=== PATIENT | female | born 1975 | race Two or more races ===

== ENCOUNTER 2019-04-19 19:28 | Inpatient (IN) | payer OTHER ==
--- NOTE | 2019-04-20 01:41 | HP ---
CIWA Score Nausea/Vomitin Muscle Tremors: 4-Moderate,w/Arms Extend Anxiety: 4-Mod. Anxious/Guarded Agitation: 4-Moderately Restless Paroxysmal Sweats: 1-Minimal Palms Moist Orientation: 3-Disoriented Date>2 days Tacttile Disturbances: 2-Mild Itch/Numbness/Burn Auditory Disturbances: 0-None Visual Disturbances: 0-None Headache: 3-Moderate CIWA-Ar Total Score: 24 - Admission Criteria OASAS Guidelines: Admission for Medically Managed Detox: Requires at least one of the followin. CIWA greater than 12 2. Seizures within the past 24 hours 3. Delirium tremens within the past 24 hours 4. Hallucinations within the past 24 hours 5. Acute intervention needed for co occurring medical disorder 6. Acute intervention needed for co occurring psychiatric disorder 7. Severe withdrawal that cannot be handled at a lower level of care (continued vomiting, continued diarrhea, abnormal vital signs) requiring intravenous medication and/or fluids 8. Patient presents the following: CIWA greater than 12 Admission Criteria Met: Admission criteria met Admission ROS [facility] - [facility] Chief Complaint: i WANT TO DETOX Allergies/Adverse Reactions: Allergies Allergy/AdvReac Type Severity Reaction Status Date / Time No Known Allergies Allergy Verified 04/19/19 23:07 History of Present Illness: 43 Y.O. MALE WITH ALCOHOLISM AND OPIOID DEPENDENCE HERE FOR DETOX. CLIENT IS REFERRED BY [facility] AFTER PRESENTING THERE FOR DETOX. SHE PRESENTS WITH C/O WITHDRAWAL SX'S. CIWA 24. 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 LDM 100 MG 04/19/2019 PENDING VERIFICATION. SHE IS KNOWN TO [facility]. LAST HERE 4 YEARS AGO IN REHAB. DENIES ANY INPATIENT TXMENT SINCE. 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 DENIES ANY CLEAN TIME IN THE PAST 1 YEAR. REPORTS +HX/O BLACK OUTS BUT DENIES SIEZURE D/O, SI/HI/AVH. LIVES WITH A FRIEND, UNEMPLOYED, DENIES LEGALS Exam Limitations: No Limitations - Ebola screening Have you traveled outside of the country in the last 21 days: No (N) Have you had contact with anyone from an Ebola affected area: No Do you have a fever: No - Review of Systems Constitutional: Chills, Loss of Appetite, Changes in sleep EENT: reports: Dental Problems (MISSING TEETH) Respiratory: reports: Shortness of Breath, Wheezing Cardiac: reports: Edema GI: reports: Constipated (LAST BM 2 SAYS AGO), Nausea, Poor Appetite, Poor Fluid Intake : reports: No Symptoms Reported Musculoskeletal: reports: Back Pain (CHRONIC) Integumentary: reports: No Symptoms Reported Neuro: reports: Headache, Numbness (TOES) Endocrine: reports: No Symptoms Reported Hematology: reports: No Symptoms Reported Psychiatric: reports: Orientated x3, Agitated (IRRITABLE), Anxious, Depressed Other Systems: Reviewed and Negative Patient History - Patient Medical History Hx Anemia: No Hx Asthma: Yes (BRONCHITIS) Hx Chronic Obstructive Pulmonary Disease (COPD): No Hx Cancer: No Hx Cardiac Disorders: No Hx Congestive Heart Failure: No Hx Hypertension: No Hx Hypercholesterolemia: No Hx Pacemaker: No HX Cerebrovascular Accident: No Hx Seizures: No Hx Dementia: No Hx Diabetes: No Hx Gastrointestinal Disorders: No Hx Liver Disease: No Hx Genitourinary Disorders: No Hx Sexually Transmitted Disorders: No Hx Renal Disease (ESRD): No Hx Thyroid Disease: No Hx Human Immunodeficiency Virus (HIV): No Hx Hepatitis C: No Hx Depression: Yes Hx Suicide Attempt: No Hx Bipolar Disorder: Yes Hx Schizophrenia: No Other Medical History: ANXIETY, BIPOLAR - Patient Surgical History Past Surgical History: Yes Hx Section: Yes (x 3 ) Hx Orthopedic Surgery: Yes (LEFT KNEE) Anesthesia Reaction: No - PPD History Previous Implant?: Yes Documented Results: Negative w/proof Implanted On Prior R Admission?: Yes Date: 04/19/15 Results: 0MM PPD to be Administered?: Yes - Reproductive History Patient is a Female of Child Bearing Age (11 -55 yrs old): Yes Last Menstrual Period: 03/28/19 LMP comment: IRREG [facility] - Smoking Cessation Smoking history: Current every day smoker Have you smoked in the past 12 months: Yes Aproximately how many cigarettes per day: 4 Cigars Per Day: 0 Hx Chewing Tobacco Use: No Initiated information on smoking cessation: Yes 'Breaking Loose' booklet given: 04/20/19 - Substance & Tx. History Hx Alcohol Use: Yes Hx Substance Use: Yes Substance Use Type: Alcohol, Cocaine, Heroin, Prescribed (METHADONE) - Substances abused Alcohol Other (specify): LIQUOR/BEER Substance route: Oral Frequency: Daily Amount used: 2 40oz beers/ 1PINT VODKA Age of first use: 14 Date of last use: 04/18/19 Heroin Substance route: Inhalation Frequency: Daily Amount used: 3 bags/day Age of first use: 35 Date of last use: 04/18/19 Cocaine Substance route: Inhalation Frequency: Daily Amount used: $60 Age of first use: 17 Date of last use: 04/18/19 Family Disease History - Family Disease History Family Disease History: Diabetes: Mother (hyperlipidemia ), Heart Disease: Mother, Other: Mother Admission Physical Exam [facility] - Vital Signs Vital Signs: Vital Signs - 24 hr 04/19/19 04/19/19 04/20/19 23:18 23:54 01:30 Temperature 98.3 F 98.3 F 98.1 F Pulse Rate 65 65 65 Respiratory 18 18 18 Rate Blood Pressure 131/95 131/95 131/95 - Physical General Appearance: Yes: Moderate Distress, Tremorous, Irritable, Anxious HEENTM: Yes: EOMI, Normocephalic, Normal Voice, VERONICA, Pharynx Normal, Nasal Congestion, Other (MISSING TEETH) Respiratory: Yes: Chest Non-Tender, Lungs Clear, Normal Breath Sounds, No Respiratory Distress, No Accessory Muscle Use Neck: Yes: No masses,lesions,Nodules, Supple, Trachea in good position Breast: Yes: Breast Exam Deferred Cardiology: Yes: Regular Rhythm, Regular Rate, S1, S2 Abdominal: Yes: Non Tender, Soft, Increased Bowel Sounds, Protuberent Genitourinary: Yes: Within Normal Limits Back: Yes: Normal Inspection Musculoskeletal: Yes: full range of Motion, Gait Steady, Back pain (C/O W/ ROM) Extremities: Yes: Normal Capillary Refill, Normal Range of Motion, Non-Tender, Tremors (FELT) Neurological: Yes: Alert, Motor Strength 5/5, Depressed Affect Integumentary: Yes: Dry, Warm Lymphatic: Yes: Within Normal Limits - Diagnostic (1) Alcohol dependence with uncomplicated withdrawal Current Visit: Yes Status: Acute (2) Cocaine dependence, uncomplicated Current Visit: Yes Status: Acute (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 (4) Chronic low back pain Current Visit: Yes Status: Chronic Qualifiers: Back pain laterality: unspecified (5) Neuropathy Current Visit: Yes Status: Chronic (6) Nicotine dependence Current Visit: Yes Status: Chronic Qualifiers: Nicotine product type: cigarettes Substance use status: uncomplicated Qualified Code(s): F17.210 - Nicotine dependence, cigarettes, uncomplicated (7) Substance induced mood disorder Current Visit: Yes Status: Suspected Cleared for Admission S - Detox or Rehab [facility] Level of Care: Medically Managed Detox Regimen/Protocol: Librium Claeared for Rehab Admission: No Breathalyzer - Breathalyzer Breathalyzer: 0 Urine Drug Screen - Test Device Lot number: [id number] Expiration date: 01/14/21 - Control Is test valid?: Yes - Results Drug screen NEGATIVE: Yes Urine drug screen results: KALIE-Cocaine, FEN-Fentanyl, MOP-Opiates, OXY-Oxycodone , MTD-Methadone Inpatient Rehab Admission - Rehab Decision to Admit Inpatient rehab admission?: No
[2019-04-20] MEDS ORDERED: MENTHOL/PHENOL 1 EACH UD MM PRN (01:50)
[2019-04-20] MEDS ORDERED: hydrOXYzine PAMOATE 25 MG CAPSULE (FP) PO PRN (01:50)
[2019-04-20] MEDS ORDERED: MAG HYDROX/AL HYDROX/SIMETH 30 ML UNIT-DOSE CUP PO PRN (01:50)
[2019-04-20] MEDS ORDERED: METHOCARBAMOL 500 MG TABLET PO PRN (01:50)
[2019-04-20] MEDS ORDERED: DICYCLOMINE HCL 10 MG CAPSULE PO PRN (01:50)
[2019-04-20] MEDS ORDERED: MAGNESIUM HYDROX 2400MG/30ML ORAL SUSPENSION 30 ML CUP PO PRN (01:50)
[2019-04-20] MEDS ORDERED: ACETAMINOPHEN 325 MG TABLET (FP) PO PRN ×2 (01:50)
[2019-04-20] MEDS ORDERED: MAGNESIUM CITRATE 300 ML BOTTLE PO PRN (01:50)
[2019-04-20] MEDS ORDERED: P-EPHED 60MG/TRIPROLIDI 2.5MG TABLET PO PRN (01:50)
[2019-04-20] MEDS ORDERED: BISMUTH SUBSALICYLATE 524 MG/30 ML UD PO PRN (01:50)
[2019-04-20] MEDS ORDERED: ONDANSETRON *ODT* 4 MG TABLET SL PRN (01:50)
[2019-04-20] MEDS ORDERED: guaiFENesin 200 MG/10 ML 10 ML UNIT-DOSE CUPS PO PRN (01:50)
[2019-04-20] MEDS: chlordiazePOXIDE HCL 25 MG CAPSULE PO PRN (02:36)
[2019-04-20] MEDS: chlordiazePOXIDE HCL 25 MG CAPSULE PO SCH ×4 (05:38→22:08)
[2019-04-20] MEDS ORDERED: METHADONE HCL 10 MG TABLET PO SCH (08:00)
--- NOTE | 2019-04-20 08:02 | EKG ---
Test Reason : Blood Pressure : / mmHG Vent. Rate : 064 BPM Atrial Rate : 064 BPM P-R Int : 152 ms QRS Dur : 074 ms QT Int : 432 ms P-R-T Axes : 044 060 054 degrees QTc Int : 445 ms NORMAL SINUS RHYTHM NORMAL ECG NO PREVIOUS ECGS AVAILABLE Confirmed by ANJEL WYNN, RALPH ([id number]) on 04/20/2019 8:02:31 AM Referred By: Edgar Patel Confirmed By:RALPH HOBBS MD
[2019-04-20] MEDS ORDERED: METHADONE HCL 40 MG DISPERSABLE TABLET ONE (08:58)
[2019-04-20] MEDS ORDERED: METHADONE HCL 10 MG TABLET ONE (08:58)
[2019-04-20] MEDS: METHADONE 80 MG, METHADONE 20 MG PO SCH (10:39)
[2019-04-20] MEDS: PRENATAL VITAMINS W/ FOLIC ACID TABLET (FP) PO SCH (10:40)
[2019-04-20] MEDS: GABAPENTIN 300 MG CAPSULE (FP) PO SCH ×2 (10:40→22:08)
[2019-04-20] MEDS: NICOTINE 14 MG/24 HOURS TOPICAL PATCH TD SCH (10:40)
[2019-04-20] MEDS: NICOTINE POLACRILEX 2 MG GUM BUC PRN (10:41)
--- NOTE | 2019-04-20 11:49 | PN ---
S CIWA - CIWA Score Nausea/Vomitin Muscle Tremors: 2 Anxiety: 3 Agitation: 3 Paroxysmal Sweats: 1-Minimal Palms Moist Orientation: 0-Oriented Tacttile Disturbances: 1-Very Mild Itch/Numbness Auditory Disturbances: 0-None Visual Disturbances: 0-None Headache: 2-Mild CIWA-Ar Total Score: 14 BHS Progress Note (SOAP) Subjective: alert,irritable,anxious,interrupted sleep,tremor,pain in the body Objective: 04/20/19 11:48 Vital Signs Temperature 98.6 F 04/20/19 09:13 Pulse Rate 81 04/20/19 09:13 Respiratory Rate 18 04/20/19 09:13 Blood Pressure 120/81 04/20/19 09:13 O2 Sat by Pulse Oximetry (%) 04/20/19 11:48 labs pending Assessment: 04/20/19 11:48 withdrawal symptom Plan: continue detox ,librium regimen
--- NOTE | 2019-04-20 12:34 | CONSULT ---
[facility] Psychiatric Consult - Data Date of interview: 04/20/19 Admission source: [facility] Identifying data: Readmission to [facility] for this 43 y/o female self- referred for detoxification (heroin, alcohol, cocaine). Examined at [address] [place] [phone]. Patient is , a mother of three, homeles, unemployed and supported on Public Assistance. Substance Abuse History: Confirmed by patient in this session. Details in current [facility] report as follows : Smoking history: Current every day smoker. Have you smoked in the past 12 months: Yes. Aproximately how many cigarettes per day: 4. Cigars Per Day: 0. Hx Chewing Tobacco Use: No. Initiated information on smoking cessation: Yes. 'Breaking Loose' booklet given: . - Substance & Tx. History. Hx Alcohol Use: Yes. Hx Substance Use: Yes. Substance Use Type: Alcohol, Cocaine, Heroin, Prescribed (METHADONE). - Substances abused. Alcohol. Other (specify): LIQUOR/BEER. Substance route : Oral. Frequency: Daily. Amount used: 2 40oz beers/ 1PINT VODKA. Age of first use: 14. Date of last use: 04/18/19. Heroin. Substance route: Inhalation. Frequency: Daily. Amount used: 3 bags/day. Age of first use: 35. Date of last use: 04/18/19. Cocaine. Substance route: Inhalation. Frequency: Daily. Amount used: $60. Age of first use: 17. Date of last use: 04/18/19 Medical History: Medical profile is remarkanble for bronchitis, arthroscopy ( left knee) and a history of three sections. Psychiatric History: Extensive history of mental illness (onset of emotional/ behavioral issues : age 11). Got diagnosed with ADHD and treated with psychostimulants. First psychiatric hospitalization occurred at [facility] (age 18) for depression + suicide attempt via self-mutilation (wrist- cutting). Discharged 4-5 months ago from [facility]. Diagnosis was revised to Bipolar Disorder. Patient is currently managed with trazodone 50 mg/hs + zoloft 100 mg/day. She is also on methadone maintenance (100 mg/day) at the [facility]. Ms Ruby presents with a history of chronic non-adherence to medications. Physical/Sexual Abuse/Trauma History: Not discussed. Patient declines to revisit this domain. Additional Comment: Urine drug screen results: KALIE-Cocaine, FEN-Fentanyl, MOP- Opiates, OXY-Oxycodone, MTD-Methadone. Noted. Mental Status Exam - Mental Status Exam Alert and Oriented to: Time, Place, Person Cognitive Function: Good Patient Appearance: Well Groomed (obese) Mood: Sad, Nervous, Withdrawn Affect: Mood Congruent, Constricted Patient Behavior: Fatigued, Appropriate, Cooperative Speech Pattern: Clear, Appropriate Voice Loudness: Normal Thought Process: Goal Oriented Thought Disorder: Not Present Hallucinations: Denies Suicidal Ideation: Denies Homicidal Ideation: Denies Insight/Judgement: Poor Sleep: Poorly, Difficulty falling asleep Appetite: Good Gait/Station: Normal Psychiatric Findings - Problem List (Bertrand 1, 2,3) (1) Alcohol dependence with uncomplicated withdrawal Current Visit: Yes Status: Acute (2) Heroin dependence Current Visit: Yes Status: Chronic (3) Cocaine dependence, uncomplicated Current Visit: Yes Status: Chronic (4) Nicotine dependence Current Visit: Yes Status: Chronic Qualifiers: Nicotine product type: cigarettes Substance use status: uncomplicated Qualified Code(s): F17.210 - Nicotine dependence, cigarettes, uncomplicated (5) Substance induced mood disorder Current Visit: Yes Status: Chronic (6) History of bipolar disorder Current Visit: Yes Status: Chronic (7) Insomnia Current Visit: Yes Status: Chronic - Initial Treatment Plan Initial Treatment Plan: Psychoeducation. Sleep hygiene. Detoxification. Support. AA/NA meetings. Resumed : trazodone 50 mg po hs + zoloft 100 mg po daily. Side effects/benefits are discussed with the patient. Ms Ruby agrees to this plan of care. Gave verbal consent to MD. Crouch.
[2019-04-20 15:05] LABS: EPI CELLS 28.3 /HPF (0-5/HPF); HYALINE CASTS 16 /lpf (0-8); PH,URINE 6.5 (5.0-8.0); URINE APPEARANCE TURBID; URINE BACTERIA 1.2 /hpf (NEGATIVE); URINE BILIRUBIN NEGATIVE (NEGATIVE); URINE COLOR YELLOW; URINE GLUCOSE (UA) NEGATIVE (NEGATIVE); URINE KETONE NEGATIVE (NEGATIVE); URINE LEUK ESTERASE TRACE (NEGATIVE); URINE NITRITE NEGATIVE (NEGATIVE); URINE PROTEIN TRACE (NEGATIVE); URINE RBC 2 /hpf (0-4); URINE WBC 7 /hpf (0-5)
[2019-04-20] MEDS ORDERED: ALBUTEROL SO4 2.5/IPRATROPIUM 0.5 INH SOL 3 ML VIAL.NEB. NEB PRN (16:29)
[2019-04-20] MEDS ORDERED: ALBUTEROL SO4 8 GM HFA INHALER IH PRN (16:29)
[2019-04-20] MEDS: THIAMINE HCL 100 MG TABLET (FP) PO SCH (22:08)
[2019-04-20] MEDS: traZODone HCL 50 MG TABLET (FP) PO SCH (22:08)
[2019-04-21] MEDS ORDERED: METHADONE HCL 10 MG TABLET ONE (04:03)
[2019-04-21] MEDS ORDERED: METHADONE HCL 40 MG DISPERSABLE TABLET ONE (04:03)
[2019-04-21] MEDS: chlordiazePOXIDE HCL 25 MG CAPSULE PO PRN (05:51)
[2019-04-21] MEDS: METHADONE 80 MG, METHADONE 20 MG PO SCH (05:51)
[2019-04-21] MEDS: chlordiazePOXIDE HCL 25 MG CAPSULE PO SCH ×4 (06:36→22:18)
[2019-04-21] MEDS: SERTRALINE HCL 50 MG TABLET (FP) PO SCH (10:42)
[2019-04-21] MEDS: PRENATAL VITAMINS W/ FOLIC ACID TABLET (FP) PO SCH (10:42)
[2019-04-21] MEDS: NICOTINE 14 MG/24 HOURS TOPICAL PATCH TD SCH (10:43)
[2019-04-21] MEDS: GABAPENTIN 300 MG CAPSULE (FP) PO SCH ×2 (10:43→22:18)
--- NOTE | 2019-04-21 11:54 | PN ---
S CIWA - CIWA Score Nausea/Vomitin Muscle Tremors: 2 Anxiety: 2 Agitation: 2 Paroxysmal Sweats: 1-Minimal Palms Moist Orientation: 0-Oriented Tacttile Disturbances: 0-None Auditory Disturbances: 0-None Visual Disturbances: 0-None Headache: 1-Very Mild CIWA-Ar Total Score: 10 S Progress Note (SOAP) Subjective: alert,irritable,anxious,interrupted sleep,tremor,coughing,yellowish,history of asthma,bronchitis Objective: 04/21/19 11:50 Vital Signs Temperature 99.5 F 04/21/19 09:39 Pulse Rate 90 04/21/19 09:39 Respiratory Rate 20 04/21/19 09:39 Blood Pressure 97/65 04/21/19 09:39 O2 Sat by Pulse Oximetry (%) 04/21/19 11:50 Laboratory Last Values Urine Color Yellow 04/20/19 12:50 Urine Appearance Turbid 04/20/19 12:50 Urine pH 6.5 (5.0-8.0) 04/20/19 12:50 Ur Specific [place] 1.024 (1.010-1.035) 04/20/19 12:50 Urine Protein Trace (NEGATIVE) 04/20/19 12:50 Urine Glucose (UA) Negative (NEGATIVE) 04/20/19 12:50 Urine Ketones Negative (NEGATIVE) 04/20/19 12:50 Urine Blood Negative (NEGATIVE) 04/20/19 12:50 Urine Nitrite Negative (NEGATIVE) 04/20/19 12:50 Urine Bilirubin Negative (NEGATIVE) 04/20/19 12:50 Urine Urobilinogen 1.0 mg/dL (0.2-1.0) 04/20/19 12:50 Ur Leukocyte Esterase Trace (NEGATIVE) 04/20/19 12:50 Urine WBC (Auto) 7 /hpf (0-5) 04/20/19 12:50 Urine RBC (Auto) 2 /hpf (0-4) 04/20/19 12:50 Urine Casts (Auto) 16 /lpf (0-8) 04/20/19 12:50 U Pathogenic Cast Auto None seen /lpf (NEGATIVE) 04/20/19 12:50 U Epithel Cells (Auto) 28.3 /HPF (0-5/HPF) 04/20/19 12:50 Urine Bacteria (Auto) 1.2 /hpf (NEGATIVE) 04/20/19 12:50 POC Urine HCG, Qual Negative 04/19/19 23:58 Assessment: 04/21/19 11:51 labs pending 04/21/19 11:51 lung expiratory wheezing bronchitis,lung expiratory wheezing Plan: continue detox librium regimen,albuterol and symbicort inhaler,duoneb nebulizer, bactrim ds 1 tab po bid for 7 days
[2019-04-21] MEDS ORDERED: PNEUMOC 13-VAL CONJ-DIP CRM/PF 0.5 ML DISP.SYRIN IM ONE (12:00)
[2019-04-21] MEDS ORDERED: PNEUMOCOCCAL 23 VACCINE 0.5 ML VIAL IM ONE (12:00)
[2019-04-21 12:11] LABS: HEMATOCRIT 39.2 % (32.4-45.2); HEMOGLOBIN 12.2 GM/dL (10.7-15.3); MCH 26.1 pg (25.7-33.7); MCHC 31.1 g/dl (32.0-36.0); MEAN CELL VOLUME 83.8 fl (80-96); MEAN PLT VOLUME 8.2 fl (7.5-11.1); PLATELET COUNT 368 K/MM3 (134-434); RBC 4.68 M/mm3 (3.60-5.2); RDW 16.3 % (11.6-15.6); WHITE BLOOD COUNT 8.7 K/mm3 (4.0-10.0)
[2019-04-21] MEDS: SULFAMETHOXAZOLE/TRIMETHOPRIM 800MG/160MG D.S. TABLET PO SCH ×2 (12:12→22:21)
[2019-04-21 12:19] LABS: ALBUMIN 3.4 g/dl (3.4-5.0); ALK PHOS 110 U/L (45-117); ANION GAP 9 MMOL/L (8-16); BILIRUBIN,TOTAL < 0.1 mg/dL (0.2-1); BLOOD UREA NITROGEN 12.6 mg/dL (7-18); CALCIUM 8.9 mg/dL (8.5-10.1); CHLORIDE 102 mmol/L (98-107); CO2 32 mmol/L (21-32); CREATININE 0.8 mg/dL (0.55-1.3); GLUCOSE,RANDOM 98 mg/dL (74-106); POTASSIUM 4.1 mmol/L (3.5-5.1); SGOT/AST 13 U/L (15-37); SGPT/ALT 27 U/L (13-61); SODIUM 142 mmol/L (136-145); TOT PROT 6.9 g/dl (6.4-8.2)
[2019-04-21] MEDS: IBUPROFEN 400 MG TABLET (FP) PO PRN (13:12)
[2019-04-21] MEDS: BUDESONIDE/FORMETEROL FUMARATE 80/4.5 mcg INHALER IH SCH ×2 (13:13→22:16)
[2019-04-21] MEDS: NICOTINE POLACRILEX 2 MG GUM BUC PRN (13:16)
[2019-04-21] MEDS: THIAMINE HCL 100 MG TABLET (FP) PO SCH (22:16)
[2019-04-21] MEDS: traZODone HCL 50 MG TABLET (FP) PO SCH (22:16)
[2019-04-22] MEDS ORDERED: chlordiazePOXIDE HCL 10 MG CAPSULE PO PRN
[2019-04-22] MEDS ORDERED: METHADONE HCL 40 MG DISPERSABLE TABLET ONE (04:52)
[2019-04-22] MEDS ORDERED: METHADONE HCL 10 MG TABLET ONE (04:52)
[2019-04-22] MEDS: chlordiazePOXIDE HCL 10 MG CAPSULE PO SCH ×4 (05:26→22:18)
[2019-04-22] MEDS: METHADONE 80 MG, METHADONE 20 MG PO SCH (05:26)
[2019-04-22] MEDS: SERTRALINE HCL 50 MG TABLET (FP) PO SCH (10:27)
[2019-04-22] MEDS: GABAPENTIN 300 MG CAPSULE (FP) PO SCH ×2 (10:27→22:18)
[2019-04-22] MEDS: BUDESONIDE/FORMETEROL FUMARATE 80/4.5 mcg INHALER IH SCH ×2 (10:27→22:18)
[2019-04-22] MEDS: SULFAMETHOXAZOLE/TRIMETHOPRIM 800MG/160MG D.S. TABLET PO SCH ×2 (10:27→22:18)
[2019-04-22] MEDS: PRENATAL VITAMINS W/ FOLIC ACID TABLET (FP) PO SCH (10:28)
[2019-04-22] MEDS: NICOTINE POLACRILEX 2 MG GUM BUC PRN (10:29)
[2019-04-22] MEDS: NICOTINE 14 MG/24 HOURS TOPICAL PATCH TD SCH (10:29)
--- NOTE | 2019-04-22 13:42 | PN ---
S CIWA - CIWA Score Nausea/Vomitin Muscle Tremors: 2 Anxiety: 2 Agitation: 2 Paroxysmal Sweats: No Perspiration Orientation: 0-Oriented Tacttile Disturbances: 1-Very Mild Itch/Numbness Auditory Disturbances: 0-None Visual Disturbances: 0-None Headache: 1-Very Mild CIWA-Ar Total Score: 10 BHS Progress Note (SOAP) Subjective: alert,irritable,anxious,interrupted sleep,pain in the body Objective: 04/22/19 13:40 Vital Signs Temperature 98.7 F 04/22/19 09:10 Pulse Rate 80 04/22/19 09:10 Respiratory Rate 16 04/22/19 09:10 Blood Pressure 104/69 04/22/19 09:10 O2 Sat by Pulse Oximetry (%) 04/22/19 13:40 Laboratory Last Values WBC 8.7 K/mm3 (4.0-10.0) 04/21/19 09:00 RBC 4.68 M/mm3 (3.60-5.2) 04/21/19 09:00 Hgb 12.2 GM/dL (10.7-15.3) 04/21/19 09:00 Hct 39.2 % (32.4-45.2) 04/21/19 09:00 MCV 83.8 fl (80-96) 04/21/19 09:00 MCH 26.1 pg (25.7-33.7) 04/21/19 09:00 MCHC 31.1 g/dl (32.0-36.0) L 04/21/19 09:00 RDW 16.3 % (11.6-15.6) H 04/21/19 09:00 Plt Count 368 K/MM3 (134-434) D 04/21/19 09:00 MPV 8.2 fl (7.5-11.1) 04/21/19 09:00 Sodium 142 mmol/L (136-145) 04/21/19 09:00 Potassium 4.1 mmol/L (3.5-5.1) 04/21/19 09:00 Chloride 102 mmol/L (98-107) 04/21/19 09:00 Carbon Dioxide 32 mmol/L (21-32) 04/21/19 09:00 Anion Gap 9 MMOL/L (8-16) 04/21/19 09:00 BUN 12.6 mg/dL (7-18) 04/21/19 09:00 Creatinine 0.8 mg/dL (0.55-1.3) 04/21/19 09:00 Est GFR (CKD-EPI)AfAm 104.65 04/21/19 09:00 Est GFR (CKD-EPI)NonAf 90.30 04/21/19 09:00 Random Glucose 98 mg/dL (74-106) 04/21/19 09:00 Calcium 8.9 mg/dL (8.5-10.1) 04/21/19 09:00 Total Bilirubin < 0.1 mg/dL (0.2-1) L 04/21/19 09:00 AST 13 U/L (15-37) L 04/21/19 09:00 ALT 27 U/L (13-61) 04/21/19 09:00 Alkaline Phosphatase 110 U/L (45-117) 04/21/19 09:00 Total Protein 6.9 g/dl (6.4-8.2) 04/21/19 09:00 Albumin 3.4 g/dl (3.4-5.0) 04/21/19 09:00 Urine Color Yellow 04/20/19 12:50 Urine Appearance Turbid 04/20/19 12:50 Urine pH 6.5 (5.0-8.0) 04/20/19 12:50 Ur Specific [place] 1.024 (1.010-1.035) 04/20/19 12:50 Urine Protein Trace (NEGATIVE) 04/20/19 12:50 Urine Glucose (UA) Negative (NEGATIVE) 04/20/19 12:50 Urine Ketones Negative (NEGATIVE) 04/20/19 12:50 Urine Blood Negative (NEGATIVE) 04/20/19 12:50 Urine Nitrite Negative (NEGATIVE) 04/20/19 12:50 Urine Bilirubin Negative (NEGATIVE) 04/20/19 12:50 Urine Urobilinogen 1.0 mg/dL (0.2-1.0) 04/20/19 12:50 Ur Leukocyte Esterase Trace (NEGATIVE) 04/20/19 12:50 Urine WBC (Auto) 7 /hpf (0-5) 04/20/19 12:50 Urine RBC (Auto) 2 /hpf (0-4) 04/20/19 12:50 Urine Casts (Auto) 16 /lpf (0-8) 04/20/19 12:50 U Pathogenic Cast Auto None seen /lpf (NEGATIVE) 04/20/19 12:50 U Epithel Cells (Auto) 28.3 /HPF (0-5/HPF) 04/20/19 12:50 Urine Bacteria (Auto) 1.2 /hpf (NEGATIVE) 04/20/19 12:50 POC Urine HCG, Qual Negative 04/19/19 23:58 RPR Titer Nonreactive (NONREACTIVE) 04/21/19 09:00 HIV 1&2 Ag/Ab, 4th Gen Non reactive (Non Reactive) 04/21/19 10:00 HIV 1&2 Antibody Screen Cancelled 04/21/19 09:00 HIV P24 Antigen Cancelled 04/21/19 09:00 Assessment: 04/22/19 13:41 withdrawal symptom Plan: continue detox librium regimen
[2019-04-22] MEDS: IBUPROFEN 400 MG TABLET (FP) PO PRN (14:10)
[2019-04-22] MEDS: THIAMINE HCL 100 MG TABLET (FP) PO SCH (22:18)
[2019-04-22] MEDS: traZODone HCL 50 MG TABLET (FP) PO SCH (22:18)
[2019-04-22] MEDS: MELATONIN 5 MG TABLETS PO PRN (22:19)
[2019-04-23] MEDS ORDERED: METHADONE HCL 40 MG DISPERSABLE TABLET ONE (04:59)
[2019-04-23] MEDS ORDERED: METHADONE HCL 10 MG TABLET ONE (04:59)
[2019-04-23] MEDS: METHADONE 80 MG, METHADONE 20 MG PO SCH (05:32)
[2019-04-23] MEDS: chlordiazePOXIDE HCL 10 MG CAPSULE PO SCH ×2 (05:32→17:19)
[2019-04-23] MEDS: BUDESONIDE/FORMETEROL FUMARATE 80/4.5 mcg INHALER IH SCH ×2 (10:13→22:30)
[2019-04-23] MEDS: PRENATAL VITAMINS W/ FOLIC ACID TABLET (FP) PO SCH (10:13)
[2019-04-23] MEDS: SULFAMETHOXAZOLE/TRIMETHOPRIM 800MG/160MG D.S. TABLET PO SCH ×2 (10:13→22:30)
[2019-04-23] MEDS: GABAPENTIN 300 MG CAPSULE (FP) PO SCH ×2 (10:13→22:30)
[2019-04-23] MEDS: SERTRALINE HCL 50 MG TABLET (FP) PO SCH (10:13)
[2019-04-23] MEDS: NICOTINE 14 MG/24 HOURS TOPICAL PATCH TD SCH (10:14)
[2019-04-23] MEDS: NICOTINE POLACRILEX 2 MG GUM BUC PRN (10:16)
[2019-04-23] MEDS: IBUPROFEN 400 MG TABLET (FP) PO PRN (13:08)
--- NOTE | 2019-04-23 16:53 | PN ---
[facility] CIWA - CIWA Score Nausea/Vomitin-No Nausea/No Vomiting Muscle Tremors: None Anxiety: 4-Mod. Anxious/Guarded Agitation: 1-Slight > Activity Paroxysmal Sweats: No Perspiration Orientation: 0-Oriented Tacttile Disturbances: 2-Mild Itch/Numbness/Burn Auditory Disturbances: 0-None Visual Disturbances: 0-None Headache: 0-None Present CIWA-Ar Total Score: 7 BHS Progress Note (SOAP) Subjective: Anxious, Body Aches, Fatigue. Objective: PATIENT A & O X 3, OBSERVED AMBULATING ON DETOX UNIT UNASSISTED. IN NO ACUTE DISTRESS. 04/23/19 16:54 Vital Signs Temperature 99.1 F 04/23/19 13:31 Pulse Rate 79 04/23/19 13:31 Respiratory Rate 20 04/23/19 13:31 Blood Pressure 91/62 04/23/19 13:31 O2 Sat by Pulse Oximetry (%) Laboratory Tests 04/19/19 04/20/19 04/21/19 23:58 12:50 09:00 WBC RBC Hgb Hct MCV MCH MCHC RDW Plt Count MPV Sodium Potassium Chloride Carbon Dioxide Anion Gap BUN Creatinine Est GFR (CKD-EPI)AfAm Est GFR (CKD-EPI)NonAf Random Glucose Calcium Total Bilirubin AST ALT Alkaline Phosphatase Total Protein Albumin Urine Color Yellow Urine Appearance Turbid Urine pH 6.5 Ur Specific [place] 1.024 Urine Protein Trace Urine Glucose (UA) Negative Urine Ketones Negative Urine Blood Negative Urine Nitrite Negative Urine Bilirubin Negative Urine Urobilinogen 1.0 Ur Leukocyte Esterase Trace Urine WBC (Auto) 7 Urine RBC (Auto) 2 Urine Casts (Auto) 16 U Pathogenic Cast Auto None seen U Epithel Cells (Auto) 28.3 Urine Bacteria (Auto) 1.2 POC Urine HCG, Qual Negative RPR Titer HIV 1&2 Ag/Ab, 4th Gen HIV 1&2 Antibody Screen HIV P24 Antigen TB (QFT) Incubation TB Test (QFT) Nil 0.04 TB Test (QFT) Mitogen >10.00 TB Test (QFT) Antigen 0.05 TB Test (QFT) Negative TB Positive Criteria 04/21/19 04/21/19 04/21/19 09:00 09:00 09:00 WBC 8.7 RBC 4.68 Hgb 12.2 Hct 39.2 MCV 83.8 MCH 26.1 MCHC 31.1 L RDW 16.3 H Plt Count 368 D MPV 8.2 Sodium 142 Potassium 4.1 Chloride 102 Carbon Dioxide 32 Anion Gap 9 BUN 12.6 Creatinine 0.8 Est GFR (CKD-EPI)AfAm 104.65 Est GFR (CKD-EPI)NonAf 90.30 Random Glucose 98 Calcium 8.9 Total Bilirubin < 0.1 L AST 13 L ALT 27 Alkaline Phosphatase 110 Total Protein 6.9 Albumin 3.4 Urine Color Urine Appearance Urine pH Ur Specific [place] Urine Protein Urine Glucose (UA) Urine Ketones Urine Blood Urine Nitrite Urine Bilirubin Urine Urobilinogen Ur Leukocyte Esterase Urine WBC (Auto) Urine RBC (Auto) Urine Casts (Auto) U Pathogenic Cast Auto U Epithel Cells (Auto) Urine Bacteria (Auto) POC Urine HCG, Qual RPR Titer HIV 1&2 Ag/Ab, 4th Gen HIV 1&2 Antibody Screen Cancelled HIV P24 Antigen Cancelled TB (QFT) Incubation TB Test (QFT) Nil TB Test (QFT) Mitogen TB Test (QFT) Antigen TB Test (QFT) TB Positive Criteria 04/21/19 04/21/19 09:00 10:00 WBC RBC Hgb Hct MCV MCH MCHC RDW Plt Count MPV Sodium Potassium Chloride Carbon Dioxide Anion Gap BUN Creatinine Est GFR (CKD-EPI)AfAm Est GFR (CKD-EPI)NonAf Random Glucose Calcium Total Bilirubin AST ALT Alkaline Phosphatase Total Protein Albumin Urine Color Urine Appearance Urine pH Ur Specific [place] Urine Protein Urine Glucose (UA) Urine Ketones Urine Blood Urine Nitrite Urine Bilirubin Urine Urobilinogen Ur Leukocyte Esterase Urine WBC (Auto) Urine RBC (Auto) Urine Casts (Auto) U Pathogenic Cast Auto U Epithel Cells (Auto) Urine Bacteria (Auto) POC Urine HCG, Qual RPR Titer Nonreactive HIV 1&2 Ag/Ab, 4th Gen Non reactive HIV 1&2 Antibody Screen HIV P24 Antigen TB (QFT) Incubation TB Test (QFT) Nil TB Test (QFT) Mitogen TB Test (QFT) Antigen TB Test (QFT) TB Positive Criteria LABS NOTED. Assessment: 04/23/19 16:54 WITHDRAWAL SYMPTOMS. Plan: CONTINUE DETOX. INCREASE DAILY PO WATER INTAKE. PATIENT SCHEDULED FOR D/C FROM DETOX UNIT TOMORROW.
[2019-04-23] MEDS: MELATONIN 5 MG TABLETS PO PRN (22:30)
[2019-04-23] MEDS: traZODone HCL 50 MG TABLET (FP) PO SCH (22:30)
[2019-04-23] MEDS: THIAMINE HCL 100 MG TABLET (FP) PO SCH (22:30)
[2019-04-24] MEDS ORDERED: METHADONE HCL 10 MG TABLET ONE (04:48)
[2019-04-24] MEDS ORDERED: METHADONE HCL 40 MG DISPERSABLE TABLET ONE (04:49)
[2019-04-24] MEDS ORDERED: chlordiazePOXIDE HCL 10 MG CAPSULE PO ONE (05:00)
[2019-04-24] MEDS: METHADONE 80 MG, METHADONE 20 MG PO SCH (05:38)
[2019-04-24 09:41] VITALS: BP 102/61; PULSE 64; TEMP 97.2
--- NOTE | 2019-04-24 09:49 | DS ---
[facility] Detox Discharge Summary Admission Date: 04/20/19 Discharge Date: 04/24/19 - History Present History: Alcohol Dependence Additional Comments: 43 years old female 2nd patient [facility] admission since 2019 was admitted on 04/20/19 for alcohol withdrawal sx management did well with libirum detox regimen no complication through out the detox stay seen by psychiatrist begin trazodone and zoloft patient is alert oriented x 3 cardiac S1S2 regular rate rhythm Clear lung sound full range of motion steady gait denies pain no dizziness - Physical Exam Results Vital Signs: Vital Signs Temperature 97.2 F L 04/24/19 09:41 Pulse Rate 64 04/24/19 09:41 Respiratory Rate 18 04/24/19 09:41 Blood Pressure 102/61 04/24/19 09:41 O2 Sat by Pulse Oximetry (%) Pertinent Admission Physical Exam Findings: alcohol withdrawal sx Laboratory Last Values WBC 8.7 K/mm3 (4.0-10.0) 04/21/19 09:00 RBC 4.68 M/mm3 (3.60-5.2) 04/21/19 09:00 Hgb 12.2 GM/dL (10.7-15.3) 04/21/19 09:00 Hct 39.2 % (32.4-45.2) 04/21/19 09:00 MCV 83.8 fl (80-96) 04/21/19 09:00 MCH 26.1 pg (25.7-33.7) 04/21/19 09:00 MCHC 31.1 g/dl (32.0-36.0) L 04/21/19 09:00 RDW 16.3 % (11.6-15.6) H 04/21/19 09:00 Plt Count 368 K/MM3 (134-434) D 04/21/19 09:00 MPV 8.2 fl (7.5-11.1) 04/21/19 09:00 Sodium 142 mmol/L (136-145) 04/21/19 09:00 Potassium 4.1 mmol/L (3.5-5.1) 04/21/19 09:00 Chloride 102 mmol/L (98-107) 04/21/19 09:00 Carbon Dioxide 32 mmol/L (21-32) 04/21/19 09:00 Anion Gap 9 MMOL/L (8-16) 04/21/19 09:00 BUN 12.6 mg/dL (7-18) 04/21/19 09:00 Creatinine 0.8 mg/dL (0.55-1.3) 04/21/19 09:00 Est GFR (CKD-EPI)AfAm 104.65 04/21/19 09:00 Est GFR (CKD-EPI)NonAf 90.30 04/21/19 09:00 Random Glucose 98 mg/dL (74-106) 04/21/19 09:00 Calcium 8.9 mg/dL (8.5-10.1) 04/21/19 09:00 Total Bilirubin < 0.1 mg/dL (0.2-1) L 04/21/19 09:00 AST 13 U/L (15-37) L 04/21/19 09:00 ALT 27 U/L (13-61) 04/21/19 09:00 Alkaline Phosphatase 110 U/L (45-117) 04/21/19 09:00 Total Protein 6.9 g/dl (6.4-8.2) 04/21/19 09:00 Albumin 3.4 g/dl (3.4-5.0) 04/21/19 09:00 Urine Color Yellow 04/20/19 12:50 Urine Appearance Turbid 04/20/19 12:50 Urine pH 6.5 (5.0-8.0) 04/20/19 12:50 Ur Specific [place] 1.024 (1.010-1.035) 04/20/19 12:50 Urine Protein Trace (NEGATIVE) 04/20/19 12:50 Urine Glucose (UA) Negative (NEGATIVE) 04/20/19 12:50 Urine Ketones Negative (NEGATIVE) 04/20/19 12:50 Urine Blood Negative (NEGATIVE) 04/20/19 12:50 Urine Nitrite Negative (NEGATIVE) 04/20/19 12:50 Urine Bilirubin Negative (NEGATIVE) 04/20/19 12:50 Urine Urobilinogen 1.0 mg/dL (0.2-1.0) 04/20/19 12:50 Ur Leukocyte Esterase Trace (NEGATIVE) 04/20/19 12:50 Urine WBC (Auto) 7 /hpf (0-5) 04/20/19 12:50 Urine RBC (Auto) 2 /hpf (0-4) 04/20/19 12:50 Urine Casts (Auto) 16 /lpf (0-8) 04/20/19 12:50 U Pathogenic Cast Auto None seen /lpf (NEGATIVE) 04/20/19 12:50 U Epithel Cells (Auto) 28.3 /HPF (0-5/HPF) 04/20/19 12:50 Urine Bacteria (Auto) 1.2 /hpf (NEGATIVE) 04/20/19 12:50 POC Urine HCG, Qual Negative 04/19/19 23:58 RPR Titer Nonreactive (NONREACTIVE) 04/21/19 09:00 HIV 1&2 Ag/Ab, 4th Gen Non reactive (Non Reactive) 04/21/19 10:00 HIV 1&2 Antibody Screen Cancelled 04/21/19 09:00 HIV P24 Antigen Cancelled 04/21/19 09:00 TB (QFT) Incubation (.) 04/21/19 09:00 TB Test (QFT) Nil 0.04 IU/mL (.) 04/21/19 09:00 TB Test (QFT) Mitogen >10.00 IU/mL (.) 04/21/19 09:00 TB Test (QFT) Antigen 0.05 IU/mL (.) 04/21/19 09:00 TB Test (QFT) Negative (Negative) 04/21/19 09:00 TB Positive Criteria (.) 04/21/19 09:00 lab noted uti bactrim ds bid 14 tables in preferred pharmacy - Treatment Hospital Course: Detox Protocol Followed, Detoxed Safely, Responded well, Discharged Condition Good, Rehab Referral Accepted Patient has Accepted [facility] Referral [facility] - Medication Discharge Medications: Ambulatory Orders Methocarbamol [Robaxin -] 1,500 mg PO DAILY PRN 04/16/15 Ranitidine [Zantac -] 150 mg PO BID 04/16/15 Gabapentin [Neurontin -] 300 mg PO BID 04/19/19 Trazodone HCl 50 mg PO HS 04/19/19 Sulfamethoxazole/Trimethoprim [Bactrim Ds -] 1 tab PO BID 7 Days #14 tablet 03/04 Sulfamethoxazole/Trimethoprim [Bactrim DS -] 1 each PO BID #14 tablet 04/24/19 - Diagnosis (1) UTI (urinary tract infection) Current Visit: Yes Status: Acute Qualifiers: Urinary tract infection type: site unspecified Hematuria presence: without hematuria Qualified Code(s): N39.0 - Urinary tract infection, site not specified (2) Alcohol dependence with uncomplicated withdrawal Current Visit: Yes Status: Acute (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 (4) Nicotine dependence Current Visit: Yes Status: Acute Qualifiers: Nicotine product type: cigarettes Substance use status: in withdrawal Qualified Code(s): F17.213 - Nicotine dependence, cigarettes, with withdrawal (5) Substance induced mood disorder Current Visit: Yes Status: Suspected - AMA Did Patient Leave Against Medical Advice: No CIWA Score - CIWA Score Nausea/Vomitin-No Nausea/No Vomiting Muscle Tremors: None Anxiety: 2 Agitation: 0-Normal Activity Paroxysmal Sweats: No Perspiration Orientation: 0-Oriented Tacttile Disturbances: 1-Very Mild Itch/Numbness Auditory Disturbances: 0-None Visual Disturbances: 0-None Headache: 0-None Present CIWA-Ar Total Score: 3
== END 2019-04-24 09:45 | disposition home or self-care (01) | DRG 773 ==
LOC: YASAS 19:28 → Y3N 04-20 01:55
PROVIDERS: ADMIT Surgery; ATTEND Surgery
PROC: HZ2ZZZZ Detoxification Services for Substance Abuse Treatment (ICD-10-PCS; principal; 2019-04-20)
DX: F10.230 Alcohol dependence with withdrawal, uncomplicated (principal); F11.20 Opioid dependence, uncomplicated; F14.20 Cocaine dependence, uncomplicated; F17.210 Nicotine dependence, cigarettes, uncomplicated; F19.24 Other psychoactive substance dependence with psychoactive substance-induced mood disorder; N39.0 Urinary tract infection, site not specified; J20.9 Acute bronchitis, unspecified; G47.00 Insomnia, unspecified; G62.9 Polyneuropathy, unspecified; M54.5 Low back pain; G89.29 Other chronic pain
CPT/HCPCS: 36415; 80053; 81003; 81025; 85027; 86480; 86593; 87389; 90732; 93005; 93010; 94640; G0009

== ENCOUNTER 2023-12-21 15:18 | Inpatient (IN) | payer OTHER ==
[2023-12-21 16:45] VITALS: BMI 38.9
[2023-12-21] MEDS ORDERED: DICYCLOMINE HCL 10 MG CAPSULE PO PRN (18:55)
[2023-12-21] MEDS ORDERED: hydrOXYzine PAMOATE 25 MG CAPSULE (FP) PO PRN (18:55)
[2023-12-21] MEDS ORDERED: BENZOCAINE/MENTHOL (CHLORASEPTIC ) LOZENGE MM PRN (18:55)
[2023-12-21] MEDS ORDERED: BISMUTH SUBSALICYLATE 524 MG/30 ML PO PRN (18:55)
[2023-12-21] MEDS ORDERED: NALOXONE HCL 0.4 MG/ML VIAL IM PRN (18:55)
[2023-12-21] MEDS ORDERED: NICOTINE POLACRILEX 2 MG LOZENGE BC PRN (18:55)
[2023-12-21] MEDS ORDERED: P-EPHED 60MG/TRIPROLIDI 2.5MG TABLET PO PRN (18:55)
[2023-12-21] MEDS ORDERED: MAGNESIUM HYDROX 2400MG/30ML ORAL SUSPENSION 30 ML CUP PO PRN (18:55)
[2023-12-21] MEDS ORDERED: LOPERAMIDE HCL 2 MG CAPSULE PO PRN (18:55)
[2023-12-21] MEDS ORDERED: guaiFENesin 600 MG TABLET.ER (FP) PO PRN (18:55)
[2023-12-21] MEDS ORDERED: POLYETHYLENE GLYCOL (HEALTHYLAX) 3350 17 GM PACKET PO PRN (18:55)
[2023-12-21] MEDS ORDERED: NICOTINE POLACRILEX 2 MG GUM BUC PRN (18:55)
[2023-12-21] MEDS ORDERED: NALOXONE HCL (KLOXXADO) 8 MG SPRAY NS PRN (18:55)
[2023-12-21] MEDS ORDERED: MAG HYDROX/AL HYDROX/SIMETH 30 ML UNIT-DOSE CUP PO PRN (18:55)
[2023-12-21] MEDS ORDERED: ALBUTEROL SO4 0.083% IH SOL 2.5 MG/3 ML VIAL.NEB. NEB PRN (18:55)
[2023-12-21] MEDS ORDERED: BENZONATATE 200 MG CAPSULE PO PRN (18:55)
[2023-12-21] MEDS ORDERED: IBUPROFEN 400 MG TABLET (FP) PO PRN (18:55)
[2023-12-21] MEDS: METHOCARBAMOL 500 MG TABLET PO PRN (20:47)
[2023-12-21] MEDS: ACETAMINOPHEN 325 MG TABLET (FP) PO PRN (20:47)
[2023-12-21] MEDS: diazePAM 5 MG TABLET PO SCH (22:06)
[2023-12-21] MEDS: THIAMINE 100 MG TABLET PO SCH (22:06)
[2023-12-21] MEDS: MELATONIN 5 MG TABLETS PO SCH (22:06)
[2023-12-22] MEDS: ALBUTEROL SO4 HFA INHALER IH PRN (06:13)
[2023-12-22] MEDS ORDERED: methaDONE HCL 10 MG TABLET PO SCH (07:53)
[2023-12-22] MEDS: PRENATAL VITAMINS W/ FOLIC ACID TABLET (FP) PO SCH (10:13)
[2023-12-22] MEDS: NICOTINE 7 MG/24 HOURS TOPICAL PATCH TD SCH (10:14)
[2023-12-22] MEDS: IBUPROFEN 600 MG TABLET (FP) PO PRN (10:15)
[2023-12-22] MEDS: GABAPENTIN 300 MG CAPSULE PO SCH (11:29)
[2023-12-22 11:42] LABS: CHLORIDE 105 mmol/L (98-107); POTASSIUM 4.1 mmol/L (3.5-5.1); SODIUM 141 mmol/L (136-145)
[2023-12-22 11:44] LABS: ALBUMIN 2.8 g/dl (3.4-5.0); ANION GAP 4 mmol/L (4-13); BLOOD UREA NITROGEN 10.4 mg/dL (7-18); CALCIUM 8.6 mg/dL (8.5-10.1); CO2 32 mmol/L (21-32); GLUCOSE,RANDOM 117 mg/dL (74-106)
[2023-12-22 11:47] LABS: CREATININE 0.7 mg/dL (0.55-1.3); SGOT/AST 16 U/L (15-37); SGPT/ALT 17 U/L (13-61)
[2023-12-22 11:48] LABS: BILIRUBIN,TOTAL 0.2 mg/dL (0.2-1); TOT PROT 6.6 g/dl (6.4-8.2)
[2023-12-22 11:50] LABS: ALK PHOS 123 U/L (45-117)
[2023-12-22 12:06] LABS: HEMOGLOBIN 11.5 GM/dL (10.7-15.3); MCH 25.8 pg (25.7-33.7); MEAN CELL VOLUME 80.4 fl (80-96); PLATELET COUNT 312 10^3/uL (134-434); RBC 4.48 M/mm3 (3.60-5.2); RDW 16.2 % (11.6-15.6); WHITE BLOOD COUNT 5.4 K/mm3 (4.0-10.0)
[2023-12-22 12:41] LABS: HIV INTERPRETATION NEGATIVE (NEGATIVE)
[2023-12-22] MEDS: diazePAM 5 MG TABLET PO PRN (15:14)
[2023-12-22] MEDS: QUEtiapine FUMARATE 100 MG TABLET (FP) PO SCH (22:06)
[2023-12-23] MEDS: diazePAM 5 MG TABLET PO SCH (05:48)
[2023-12-23] MEDS: ONDANSETRON *ODT* 4 MG TABLET SL PRN (10:13)
[2023-12-24] MEDS: diazePAM 5 MG TABLET PO SCH (05:46)
[2023-12-24] MEDS: amLODIPine BESYLATE 10 MG TABLET (FP) PO SCH (18:59)
[2023-12-25] MEDS: diazePAM 5 MG TABLET PO ONE (05:49)
[2023-12-25 08:59] VITALS: BP 121/76; PULSE 81; RESP 18; TEMP 97.8
== END 2023-12-25 09:16 | disposition home or self-care (01) | DRG 773 ==
LOC: YASAS 15:18 → Y3N 19:42
PROVIDERS: ADMIT Allergy & Immunology; ATTEND Surgery
PROC: HZ2ZZZZ Detoxification Services for Substance Abuse Treatment (ICD-10-PCS; principal; 2023-12-21)
DX: F10.230 Alcohol dependence with withdrawal, uncomplicated (principal); F11.20 Opioid dependence, uncomplicated; F14.20 Cocaine dependence, uncomplicated; F17.210 Nicotine dependence, cigarettes, uncomplicated; F31.9 Bipolar disorder, unspecified; F19.94 Other psychoactive substance use, unspecified with psychoactive substance-induced mood disorder; G47.00 Insomnia, unspecified; J45.909 Unspecified asthma, uncomplicated; M54.59 Other low back pain; G89.29 Other chronic pain; Z91.51 Personal history of suicidal behavior; Z56.0 Unemployment, unspecified
CPT/HCPCS: 36415; 80053; 80305; 80307; 81025; 82962; 85027; 86780; 86803; 87389; 93005; 93010; Q0162